=== PATIENT | female | born 1940 | race Caucasian/White ===

== ENCOUNTER 2018-04-24 09:13 | Observation (INO) | payer OTHER ==
[~2018-04-24] VITALS: Ht 147.3 cm; Wt 70.3 kg
[2018-04-24 10:01] LABS: BASOPHIL (%) 0.4 % (0-1); EOSINOPHIL (%) 2.5 % (0-5); EOSINOPHIL COUNT 0.1 K/uL (0-0.3); HEMATOCRIT 34.6 % (36.0-46.0); HEMOGLOBIN 11.2 G/DL (11.9-15.5); IMMATURE GRANULOCYTE (%) 0.6 % (0.0-0.7); LYMPHOCYTE (%) 18.1 % (15-42); LYMPHOCYTE COUNT 0.9 K/uL (1.0-2.8); MCH 29.1 PG (29.0-34.0); MCHC 32.4 G/DL (30.0-36.0); MCV 89.9 FL (83-99); MONOCYTE COUNT 0.4 K/uL (0-0.8); NEUTROPHIL (%) 71.4 % (45-76); NEUTROPHIL COUNT 3.7 K/uL (1.8-6.4); PLATELET COUNT 224 K/uL (156-360); RBC DIS.WIDTH-CV 14.6 % (11.8-14.6); RBC DIS.WIDTH-SD 48.1 % (39-53); RED BLOOD COUNT 3.85 M/uL (3.80-5.20); WHITE BLOOD COUNT 5.2 K/uL (4.1-10.2)
[2018-04-24 10:10] LABS: ALBUMIN 3.9 g/dL (3.2-4.8)
[2018-04-24 10:11] LABS: CHLORIDE 108 mEq/L (99-109); POTASSIUM 4.3 mEq/L (3.7-5.4); SODIUM 138 mEq/L (136-147)
[2018-04-24 10:13] LABS: GLUCOSE 101 mg/dL (70-99); TOTAL PROTEIN 6.6 g/dL (6.4-8.3)
[2018-04-24 10:15] LABS: TOTAL BILIRUBIN 0.4 mg/dL (0.0-1.0)
[2018-04-24 10:16] LABS: ALKALINE PHOSPHATASE 98 IU/L (3-129)
[2018-04-24 10:17] LABS: GFR ESTIMATE (CALCULATED) 57 mL/min/
[2018-04-24 10:18] LABS: AST (GOT) 259 IU/L (2-34); UREA NITROGEN (BUN) 21 mg/dL (9-23)
[2018-04-24 10:19] LABS: ALT (GPT) 127 IU/L (3-49)
[2018-04-24 10:20] LABS: LIPASE 147 U/L (1.0-51.0)
[2018-04-24 10:21] LABS: TROP-I INTERPRETATION NEGATIVE; TROPONIN-I < 0.01 ng/mL (0.0-0.30)
[2018-04-24] MEDS ORDERED: IBU800 MG PO (12:19)
[2018-04-24] MEDS ORDERED: RANITIDINE HCL150 MG PO (12:19)
[2018-04-24] MEDS ORDERED: LYRICA75 MG PO (12:19)
[2018-04-24] MEDS ORDERED: SIMVASTATIN20 MG PO (12:20)
[2018-04-24] MEDS ORDERED: LISINOPRIL20 MG PO (12:20)
[2018-04-24] MEDS ORDERED: SERTRALINE HCL100 MG PO (12:20)
[2018-04-24] MEDS ORDERED: LO-DOSE ASPIRIN81 M1 PO (12:21)
[2018-04-24 15:30] VITALS: BP 136/60
[2018-04-24 16:40] LABS: TROP-I INTERPRETATION NEGATIVE; TROPONIN-I < 0.01 ng/mL (0.0-0.30)
[2018-04-24 19:26] VITALS: BP 133/63
[2018-04-24 21:10] LABS: APPEARANCE CLEAR ((CLEAR)); BILIRUBIN NEGATIVE; BLOOD NEGATIVE; COLOR YELLOW ((YELLOW)); GLUCOSE (STRIP) NEGATIVE; KETONES NEGATIVE; LEUKOCYTES NEGATIVE; NITRITE NEGATIVE; PROTEIN (STRIP) NEGATIVE; SPECIFIC GRAVITY 1.024 (1.000-1.030); UCUL ADDED? NO; UROBILINOGEN 0.2 MG/DL (0.2-1.0)
[2018-04-24 22:10] LABS: TROP-I INTERPRETATION NEGATIVE; TROPONIN-I < 0.01 ng/mL (0.0-0.30)
[2018-04-25 00:11] VITALS: BP 111/56
[2018-04-25 04:32] VITALS: BP 112/52
[2018-04-25 06:14] LABS: CHLORIDE 111 MEQ/L (99-109); CREATININE 0.8 MG/DL (0.6-1.3); GFR ESTIMATE (CALCULATED) > 59 mL/min/; GLUCOSE 94 mg/dL (70-99); SODIUM 141 MEQ/L (136-147); UREA NITROGEN (BUN) 14 mg/dL (9-23)
[2018-04-25 06:21] LABS: TROP-I INTERPRETATION NEGATIVE; TROPONIN-I < 0.01 ng/mL (0.0-0.30)
[2018-04-25 07:42] VITALS: BP 118/56
[2018-04-25 09:18] LABS: ALBUMIN 3.2 G/DL (3.2-4.8); ALKALINE PHOSPHATASE 64 IU/L (3-129); ALT (GPT) 79 IU/L (3-49); AST (GOT) 82 IU/L (2-34); DIRECT BILIRUBIN 0.1 mg/dL (0.0-0.3); TOTAL BILIRUBIN 0.3 MG/DL (0.0-1.0); TOTAL PROTEIN 5.4 G/DL (6.4-8.3)
[2018-04-25 12:31] VITALS: BP 123/67
== END 2018-04-25 11:05 | disposition home or self-care (01) ==
LOC: EME 09:13 → 4SOUTH 12:39 → EDOF 12:39 → ENRESERV 12:47 → 4SOUTH 15:07 → ENPENDDIS 04-25 → 4SOUTH 04-25 11:05
PROVIDERS: Emergency Medicine; Hospitalist
DX: R55 Syncope and collapse (principal); E86.0 Dehydration; R11.2 Nausea with vomiting, unspecified; R19.7 Diarrhea, unspecified; R06.02 Shortness of breath; R07.9 Chest pain, unspecified; I10 Essential (primary) hypertension; K21.9 Gastro-esophageal reflux disease without esophagitis; E78.5 Hyperlipidemia, unspecified; F32.9 Major depressive disorder, single episode, unspecified; K58.0 Irritable bowel syndrome with diarrhea; Z79.82 Long term (current) use of aspirin; Z88.0 Allergy status to penicillin; Z88.5 Allergy status to narcotic agent; Z90.49 Acquired absence of other specified parts of digestive tract; Z82.49 Family history of ischemic heart disease and other diseases of the circulatory system; Z83.3 Family history of diabetes mellitus
CPT/HCPCS: 71046; 74177; 80048; 80053; 80076; 81003; 83690; 84484; 85025; 87493; 93005; 99281; 99285; G0378; J1644; J2405; J2765; J7030